=== PATIENT | male | born 1990 | race Caucasian/White ===

== ENCOUNTER 2020-08-04 09:24 | Day surgery (SDC) | payer OTHER ==
[~2020-08-04 09:24] MED LIST: CEFAZOLIN SODIUM IN 0.9 % NACL 2 GM/100 ML BAG IV ONE
[2020-08-04] MEDS ORDERED: LACTATED RINGERS 1,000 ML IV ONE ×2 (09:56→11:25)
[2020-08-04] MEDS ORDERED: fentaNYL 100 MCG/2 ML VIAL IVP ONE (10:00)
[2020-08-04] MEDS ORDERED: PROPOFOL 200 MG/20 ML VIAL IVP ONE (10:00)
[2020-08-04] MEDS ORDERED: BUPIVACAINE 0.25% PF 30 ML VIAL ONE (10:10)
[2020-08-04] MEDS ORDERED: BUPIVACAINE 0.25% PF 30 ML VIAL SUBQ ONE (10:57)
[2020-08-04] MEDS ORDERED: ONDANSETRON 4 MG/2 ML VIAL IVP PRN ×2 (11:24→11:32)
[2020-08-04] MEDS ORDERED: oxyCODONE 5 MG TABLET PO PRN (11:24)
--- NOTE | 2020-08-04 11:28 | IMMEDIATE POSTOPERATIVE NOTE ---
Immediate Postoperative Note - Procedure Note Procedure Date: 08/04/20 Pre-Op Diagnosis: right hand mass Procedure: right hand mass excisional biopsy Post-Op Diagnosis: right hand mass Primary Surgeon: cornelius Painter Assistant: fantasma Anesthesia Type: General LMA Findings: 1.5 x 1.5 cm mass in the subcutaneous tissue of the palm. It was red and l obulated. it was excised en block Estimated Blood Loss (in cc): 2 Specimens and Cultures: Right hand mass Plan of Care: same day discharge when meeting criteria
[2020-08-04] MEDS ORDERED: METOCLOPRAMIDE 10 MG/2 ML VIAL IVP PRN (11:32)
[2020-08-04] MEDS ORDERED: NALOXONE 0.4 MG/ML VIAL IVP PRN (11:32)
[2020-08-04] MEDS ORDERED: HYDROmorphone 0.5 MG/0.5 ML SYRINGE IVP PRN (11:32)
[2020-08-04] MEDS ORDERED: ACETAMINOPHEN 1,000 MG/100 ML 100 ML IV ONE (11:32)
[2020-08-04] MEDS ORDERED: ePHEDrine 50 MG/ML VIAL IVP PRN (11:32)
[2020-08-04] MEDS ORDERED: MORPHINE 2 MG/ML CARPUJECT IVP PRN (11:32)
[2020-08-04] MEDS ORDERED: ATROPINE ABBOJECT 1 MG/10 ML SYRINGE IVP PRN (11:32)
[2020-08-04] MEDS ORDERED: fentaNYL 100 MCG/2 ML VIAL IVP PRN (11:32)
[2020-08-04] MEDS ORDERED: LACTATED RINGERS 1,000 ML IV SCH (12:00)
[2020-08-04 12:01] VITALS: BP 118/75
--- NOTE | 2020-08-04 12:01 | ANESTHESIA POST OP EVALUATION ---
Anesthesia Post Eval - Post Anesthesia Eval Vitals: Last Vital Signs Temp 36.4 C L 08/04/20 11:40 Pulse 71 08/04/20 11:40 Resp 23 08/04/20 11:40 BP 113/66 08/04/20 11:40 Pulse Ox 96 08/04/20 11:40 CV Function Including HR & BP: positive: Stable Pain Control: positive: Satisfactory Nausea & Vomiting: positive: Negative Mental Status: positive: Baseline Respiratory Status: Airway Patent
[2020-08-04] MEDS ORDERED: oxyCODONE 5 MG TABLET ONE (12:05)
--- NOTE | 2020-08-04 14:46 | OPERATIVE REPORT ---
Operative Report - Other Other Information/Narrative: Date of Surgery: 04 August 2020 Pre-Op Diagnosis: Right hand mass Procedure: Right hand mass excisional biopsy Postop Diagnosis: Same Primary Surgeon: Oli Montgomery Secondary Surgeon: Blayne Carmona Complications: None Tourniquet Time: 17 minutes EBL: 2 cc Findings: 1.5 cm x 1.5 cm multilobulated hemorrhagic mass. This was sent for specimen Postoperative Protocol: Keep dressing on until sutures are out in 2 weeks. May start firm gripping activities after 3 weeks. Manual labor may begin at 4 weeks. Indication For Surgery: []. The risks, benefits, and alternatives were discussed. Risks include pain, bleeding, infection, damage to nearby str uctures, numbness, lack of symptom relief, need for further surgery, DVT, PE, stroke, and . Written consent was obtained. The patient was met in the preoperative holding on the day of the procedure. Operative extremity was signed. Consent was verified. They desire to proceed. They were brought to the operating room and placed in the supine position. A well-padded forearm tourniquet was applied. They were prepped and draped in the standard fashion. A surgical timeout was held will be confirmed the patient procedure, identity, allergies, antibiotics, images, laterality, and surgical site. All were in agreement we proceeded. A chevron type incision was made over the mass and sharp dissection was brought down to the level of the skin. Full-thickness skin flaps were obtained and the mass was identified within the wound. The mass was located just superficial to the palmar fascia. I carefully dissected the mass off of the surrounding tissues and sharply excised it from the palmar fascia. The mass was taken out en bloc and sent for permanent. The wound was then irrigated copiously and closed with 4-0 nylon in the skin. 10 cc of quarter percent Marcaine were placed around the wound. Sterile dressing was applied and he was awakened and transferred to the recovery room.
--- NOTE | 2020-08-12 14:48 | ANESTHESIA ---
Pre-Anesthesia VS, & Labs - Diagnosis Right Hand Mass - Procedure right hand mass excision Vital Signs: Temp Pulse Resp BP Pulse Ox 36.3 C L 58 L 12 118/75 97 08/04/20 12:00 08/04/20 12:00 08/04/20 12:00 08/04/20 12:00 08/04/20 12:00 Height: 5 ft 8 in Weight (kg): 79.38 kg Body Mass Index: 26.6 BMI Classification: Overweight - NPO >8 hours Home Medications and Allergies Home Medications: Ambulatory Orders No Known Home Medications 08/03/20 No Known Home Medications 08/03/20 Allergies/Adverse Reactions: Allergies Allergy/AdvReac Type Severity Reaction Status Date / Time trazodone Allergy Severe Unknown Verified 08/03/20 09:12 Anes History & Medical History - Anesthetic History Anesthesia Complications: reports: No previous complications Family history of Anesthesia Complications: Denies Family history of Malignant Hyperthermia: Denies - Medical History Cardiovascular: reports: None Pulmonary: reports: None Gastrointestinal: reports: None Urinary: reports: None Musculoskeletal: reports: Other Endocrine/Autoimmune: reports: None Skin: reports: None - Surgical History General: Other Eyes Ears Nose Throat (EENT): Rhinoplasty Orthopedic: Other Exam General: Alert, Oriented x3, Cooperative, No acute distress Dental: WNL Mouth Opening: Greater than 4 Fingerbreadths Neck Mobility: Normal Mallampati classification: II, III Thyromental Distance: greater than 6 cm Respiratory: Lungs clear, Normal breath sounds, No respiratory distress, No accessory muscle use Cardiovascular: Regular rate, Normal S1, Normal S2, No murmurs Mental/Cognitive Status: Alert/Oriented X3, Normal for patient Plan Anesthesia Type: General Consent for Procedure(s) Verified and Reviewed: Yes Code Status: Attempt Resuscitation ASA classification: 2-Mild systemic disease Is this case an emergency?: No
== END 2020-08-04 09:25 | disposition home or self-care (01) ==
LOC: SDS 09:24
PROVIDERS: ATTEND Orthopaedic Surgery
PROC: 0JBJ0ZZ Excision of Right Hand Subcutaneous Tissue and Fascia, Open Approach (ICD-10-PCS; principal; 2020-08-04 11:00)
DX: R22.31 Localized swelling, mass and lump, right upper limb (principal)